=== PATIENT | female | born 1985 ===

== ENCOUNTER 2017-05-10 17:45 | Inpatient (IN) | payer BC ==
[2017-05-10] MEDS ORDERED: Sodium Chloride 0.9% 1,000 ML IV STA (18:25)
[2017-05-10] MEDS ORDERED: Iohexol 240 (50 ml) PO ONE (18:42)
--- NOTE | 2017-05-10 18:50 | ED PDOC ---
HPI: General Adult Time Seen by Provider: 05/10/17 18:17 Chief Complaint (Nursing): Abdominal Pain History Per: Patient Additional Complaint(s): Pt. states for the past 6 months she's had a progressively worsening mass on the LLQ which has become painful. States she was talking to Dr. Vazquez OBGYN, today who advised her to come to ED for further evaluation. 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 Denies fever, melena, hematochezia, BRBPR, diarrhea. Past Medical History Reviewed: Historical Data, Nursing Documentation, Vital Signs Vital Signs: Last Vital Signs Temp 97.9 F 05/11/17 07:32 Pulse 76 05/11/17 07:32 Resp 18 05/11/17 07:32 BP 118/79 05/11/17 07:32 Pulse Ox 99 05/11/17 07:32 - Surgical History Other surgeries: intestinal obstruction at 4 y/o - Family History Family History: States: No Known Family Hx - Home Medications Home Medications: Ambulatory Orders Medication Instructions Recorded No Known Home Med 05/10/17 - Allergies Allergies/Adverse Reactions: Allergies Allergy/AdvReac Type Severity Reaction Status Date / Time No Known Allergies Allergy Verified 05/10/17 17:48 Review of Systems ROS Statement: Except As Marked, All Systems Reviewed And Found Negative Gastrointestinal: Positive for: Abdominal Pain Physical Exam - Physical Exam Appears: Positive for: Well, Non-toxic, No Acute Distress Head Exam: Positive for: ATRAUMATIC Skin: Positive for: Normal Color, Warm. Negative for: Rash Eye Exam: Positive for: Normal appearance ENT: Positive for: Normal ENT Inspection Neck: Positive for: Normal, Painless ROM Cardiovascular/Chest: Positive for: Tachycardia. Negative for: Murmur Respiratory: Positive for: Normal Breath Sounds. Negative for: Respiratory Distress Gastrointestinal/Abdominal: Positive for: Normal Exam, Bowel Sounds, Soft, Tenderness (Minimal LLQ tenderness ), Mass (LLQ non-reducible mass). Negative for: Distended, Guarding Back: Positive for: Normal Inspection. Negative for: L CVA Tenderness, R CVA Tenderness Extremity: Positive for: Normal ROM Neurologic/Psych: Positive for: Alert, Oriented. Negative for: Aphasia, Facial Droop - Laboratory Results Result Diagrams: 05/10/17 19:11 05/11/17 12:52 - ECG O2 Sat by Pulse Oximetry: 100 - Progress ED Course And Treament: Case d/w Dr. Vazquez and requests CT abd/pelvis w/o contrast and CT abd/pelvis w / PO and IV contrast and for patient to be admitted under Dr. Atkinson and to contact vice president of engineering. [address] abd/pelvis w/o contrast and CT abd/pelvis w/ PO and IV contrast ordered. Call placed to vice president of engineering. 1854 Case d/w Dr. Atkinson who agrees with plan as stated above. CT orders read and reread to Dr. Atkinson and confirmed that this is what he wants. Also states pt. can be admitted under his service. Case d/w Dr. Barragan, vice president of engineering, who will see patient in ED. [address] Barragan in ED. Pending CT. Disposition - Clinical Impression Clinical Impression: Abdominal pain - Patient ED Disposition Is Patient to be Admitted: Yes - Disposition Disposition Time: 19:04 Condition: STABLE
[2017-05-10 19:31] LABS: BASO % 0.7 % (0.0-2.0); EOS # 0.1 K/uL (0.0-0.7); EOS % 1.4 % (0.0-4.0); HEMOGLOBIN 11.8 g/dL (12.0-16.0); LYMPH # 2.5 K/uL (1.0-4.3); LYMPH % 42.1 % (20.0-40.0); MEAN CELL VOLUME 79.6 fl (81.0-99.0); MEAN CORPUSCULAR HEMOGLOBIN 25.6 pg (27.0-31.0); MEAN CORPUSCULAR HGB CONC 32.2 g/dL (33.0-37.0); MEAN PLATELET VOLUME 7.1 fl (7.2-11.7); MONO # 0.3 K/uL (0.0-0.8); MONO % 5.3 % (0.0-10.0); NEUT # 2.9 K/uL (1.8-7.0); NEUT % 50.5 % (50.0-75.0); NRBC % 0.1 % (0.0-0.0); RBC 4.59 Mil/uL (3.80-5.20); RED CELL DISTRIBUTION WIDTH 16.1 % (11.5-14.5); WHITE BLOOD COUNT 5.8 K/uL (4.8-10.8)
[2017-05-10 19:35] LABS: VENOUS BLOOD GAS PCO2 45 mmHg (40-60); VENOUS BLOOD GAS PO2 25 mm/Hg (30-55); VENOUS BLOOD PH 7.38 (7.32-7.43)
[2017-05-10 19:39] LABS: SQUAMOUS EPITHIAL 2 /hpf (0-5); URINE BACTERIA FEW (<OCC); URINE BILIRUBIN NEGATIVE (NEGATIVE); URINE BLOOD SMALL (NEGATIVE); URINE CLARITY CLEAR (Clear); URINE COLOR STRAW (YELLOW); URINE GLUCOSE (UA) NEG (Normal); URINE LEUKOCYTE ESTERASE NEG Leu/uL (Negative); URINE PROTEIN NEGATIVE (NEGATIVE); URINE UROBILINOGEN 0.2-1.0 mg/dL (0.2-1.0)
[2017-05-10 19:41] LABS: ALB/GLOB RATIO 1.4 (1.0-2.1); ALBUMIN 4.8 g/dL (3.5-5.0); ALT/SGPT 27 U/L (9-52); AST/SGOT 24 U/L (14-36); BLOOD UREA NITROGEN 10 mg/dl (7-17); CALCIUM 9.8 mg/dL (8.4-10.2); GFR AFRICAN-AMERICAN > 60; GFR NON-AFRICAN AMERICAN > 60
[2017-05-10] MEDS ORDERED: Iohexol 240 (50 ml) ONE (19:47)
--- NOTE | 2017-05-10 19:54 | CP.PCM.HP ---
History of Present Illness - History of Present Illness History of Present Illness: SURGERY H&P FOR BRANDYNBIN 31F presents with abdominal pain that has been on going for 6 months. Patient states pain is getting much worse and came to ED for evaluation. Patient denies nausea and vomiting, fevers and chills. She states she has been having bowel movements and had two today which were diarrhea. She states she feels a mass in the left lower quadrant that has been getting bigger. PMH: none PSH: bowel resection at 4years old for "obstruction and strangulated bowel" Social: denies tobacco, alcohol and illicit drugs Allergies: NKDA Present on Admission - Present on Admission Any Indicators Present on Admission: No Past Patient History - Past Social History Smoking Status: Never Smoked - PSYCHIATRIC Hx Substance Use: No Meds Allergies/Adverse Reactions: Allergies Allergy/AdvReac Type Severity Reaction Status Date / Time No Known Allergies Allergy Verified 05/10/17 17:48 Physical Exam - Constitutional Appears: Well, Non-toxic, No Acute Distress - Head Exam Head Exam: ATRAUMATIC - Eye Exam Eye Exam: EOMI, PERRL - ENT Exam ENT Exam: Mucous Membranes Moist - Respiratory Exam Respiratory Exam: Clear to Auscultation Bilateral, NORMAL BREATHING PATTERN - Cardiovascular Exam Cardiovascular Exam: REGULAR RHYTHM, +S1, +S2 - GI/Abdominal Exam GI & Abdominal Exam: Mass (LLQ mobile mass), Soft, Tenderness (moderately tender in LLQ). absent: Distended, Firm, Guarding, Rebound, Rigid - Neurological Exam Neurological exam: Alert, Oriented x3 - Psychiatric Exam Psychiatric exam: Normal Affect, Normal Mood - Skin Skin Exam: Dry, Intact, Normal Color, Warm Results - Vital Signs Recent Vital Signs: Last Vital Signs Temp 98.5 F 05/10/17 17:49 Pulse 110 H 05/10/17 17:49 Resp 16 05/10/17 17:49 BP 137/87 05/10/17 17:49 Pulse Ox 100 05/10/17 19:35 - Labs Result Diagrams: 05/10/17 19:11 05/10/17 19:11 Labs: Laboratory Results - last 24 hr 05/10/17 05/10/17 05/10/17 19:11 19:11 19:11 WBC 5.8 RBC 4.59 Hgb 11.8 L Hct 36.5 MCV 79.6 L MCH 25.6 L MCHC 32.2 L RDW 16.1 H Plt Count 401 H MPV 7.1 L Neut % (Auto) 50.5 Lymph % (Auto) 42.1 H [place] % (Auto) 5.3 Eos % (Auto) 1.4 Baso % (Auto) 0.7 Neut # (Auto) 2.9 Lymph # (Auto) 2.5 [place] # (Auto) 0.3 Eos # (Auto) 0.1 Baso # (Auto) 0.0 pO2 VBG pH VBG pCO2 VBG HCO3 VBG Total CO2 VBG O2 Sat (Calc) VBG Base Excess VBG Potassium Glucose Lactate FiO2 Sodium 142 Potassium 3.4 L Chloride 99 Carbon Dioxide 26 Anion Gap 20 BUN 10 Creatinine 0.7 Est GFR ( Amer) > 60 Est GFR (Non-Af Amer) > 60 Random Glucose 93 Calcium 9.8 Total Bilirubin 0.8 AST 24 ALT 27 Alkaline Phosphatase 87 Total Protein 8.3 H Albumin 4.8 Globulin 3.5 Albumin/Globulin Ratio 1.4 Venous Blood Potassium Urine Color Urine Clarity Urine pH Ur Specific [place] Urine Protein Urine Glucose (UA) Urine Ketones Urine Blood Urine Nitrate Urine Bilirubin Urine Urobilinogen Ur Leukocyte Esterase Urine RBC (Auto) Urine Microscopic WBC Ur Squamous Epith Cells Urine Bacteria BBK History Checked No verified bt 05/10/17 05/10/17 19:11 19:30 WBC RBC Hgb Hct MCV MCH MCHC RDW Plt Count MPV Neut % (Auto) Lymph % (Auto) [place] % (Auto) Eos % (Auto) Baso % (Auto) Neut # (Auto) Lymph # (Auto) [place] # (Auto) Eos # (Auto) Baso # (Auto) pO2 25 L VBG pH 7.38 VBG pCO2 45 VBG HCO3 24.2 VBG Total CO2 28.0 VBG O2 Sat (Calc) 49.2 VBG Base Excess 1.0 VBG Potassium 3.3 L Glucose 89 Lactate 1.0 FiO2 21.0 Sodium 138.0 Potassium Chloride 106.0 Carbon Dioxide Anion Gap BUN Creatinine Est GFR ( Amer) Est GFR (Non-Af Amer) Random Glucose Calcium Total Bilirubin AST ALT Alkaline Phosphatase Total Protein Albumin Globulin Albumin/Globulin Ratio Venous Blood Potassium 3.3 L Urine Color Straw Urine Clarity Clear Urine pH 6.0 Ur Specific [place] 1.006 Urine Protein Negative Urine Glucose (UA) Neg Urine Ketones Trace Urine Blood Small Urine Nitrate Negative Urine Bilirubin Negative Urine Urobilinogen 0.2-1.0 Ur Leukocyte Esterase Neg Urine RBC (Auto) 1 Urine Microscopic WBC 1 Ur Squamous Epith Cells 2 Urine Bacteria Few H BBK History Checked Assessment & Plan - Assessment and Plan (Free Text) Assessment: 31F with abdominal pain and mass in LLQ Plan: - Admit patient - Pt needs abdominal CT scan IV/PO contrast - Bowel prep overnight in prep for OR tomm - NPOmn and pre-op labs Further recs discuss with Dr. China Barragan, PGY2
[2017-05-10 19:56] LABS: PROTHROMBIN TIME 11.3 Seconds (9.8-13.1)
[2017-05-10 19:57] LABS: PARTIAL THROMBOPLASTIN TIME 30.4 Seconds (25.6-37.1)
[2017-05-10] MEDS ORDERED: Magnesium Citrate Oral SOL (300 ml) PO ONE (19:58)
--- NOTE | 2017-05-10 20:45 | CT ---
EXAM: CT Abdomen and Pelvis Without Intravenous Contrast EXAM DATE/TIME: 05/10/2017 6:42 PM CLINICAL HISTORY: 31 years old, female; Pain; Abdominal pain; Localized; Left lower quadrant (llq); Prior surgery; Surgery date: 6+ months; Surgery type: Intest. Obst. At 4 yrs of age; Patient HX: Pt. States: Endometriosis; Additional info: As requested by dr. Vazquez TECHNIQUE: Axial computed tomography images of the abdomen and pelvis without intravenous contrast. All CT scans at this facility use one or more dose reduction techniques, viz.: automated exposure control; ma/kV adjustment per patient size (including targeted exams where dose is matched to indication; i.e. head); or iterative reconstruction technique. Coronal and sagittal reformatted images were created and reviewed. COMPARISON: There are no prior studies for comparison. FINDINGS: Limitations: Lack of intravenous and oral contrast and paucity of body fat limits evaluation of the abdomen and pelvis. Lower thorax: Heart size is normal. Lung bases are clear. ABDOMEN: Liver: unremarkable Gallbladder and bile ducts: Gallbladder is distended. There is incidental pneumobilia. Common duct is not well demonstrated. Pancreas: unremarkable Spleen: unremarkable Adrenals: unremarkable Kidneys and ureters: unremarkable Stomach and bowel: Stomach is incompletely distended. Positioning of small bowel suggest rotational anomaly. Small bowel is located in the right abdomen and right lower quadrant. Small bowel is mildly distended with air. There is mild wall and fold prominence. Cecum is difficult to identify and may be in the epigastric region and left upper quadrant. Terminal ileum and appendix are not well demonstrated.Colon is incompletely distended which limits evaluation. Appendix: See above PELVIS: Bladder: Bladder is incompletely distended. Reproductive: Uterus is unremarkable. There is a 5.8 x 8 x 7.7 cm left adnexal mass. There is an 8.9 x 8.5 x 7 cm right adnexal mass. Masses are not simple cysts. ABDOMEN and PELVIS: Intraperitoneal space: There is no free air or free fluid. Bones/joints: There are no acute osseous abnormalities. Soft tissues: unremarkable Vasculature: Aorta and inferior vena cava are unremarkable. Lymph nodes: There is shotty adenopathy. 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
[2017-05-10] MEDS ORDERED: Sodium Chloride 0.9% 100 ML ONE (21:38)
[2017-05-10] MEDS ORDERED: Iohexol 300 100 ML IJ ONE (21:38)
--- NOTE | 2017-05-10 22:34 | CT ---
EXAM: CT Abdomen and Pelvis With Intravenous Contrast EXAM DATE/TIME: 05/10/2017 6:42 PM CLINICAL HISTORY: 31 years old, female; Pain; Abdominal pain; Localized; Left lower quadrant (llq); Prior surgery; Surgery date: 6+ months; Surgery type: Intestinal obst. ; Patient HX: Obst at 4 yrs old; Additional info: As requested by dr. Vazquez TECHNIQUE: Axial computed tomography images of the abdomen and pelvis with intravenous contrast. All CT scans at this facility use one or more dose reduction techniques, viz.: automated exposure control; ma/kV adjustment per patient size (including targeted exams where dose is matched to indication; i.e. head); or iterative reconstruction technique. Coronal and sagittal reformatted images were created and reviewed. CONTRAST: 75 mL of [id number] administered intravenously. COMPARISON: CT - ABD PELVIS W/O PO OR IV CONT 2017-05-10 19:25 FINDINGS: Lower thorax: Heart size is normal. Lung bases are clear ABDOMEN: Liver: unremarkable Gallbladder and bile ducts: There is pneumobilia. Gallbladder is partially distended.There is mild prominence of the common duct. Pancreas: unremarkable Spleen: unremarkable Adrenals: unremarkable Kidneys and ureters: Kidneys are unremarkable. There is no dilatation on the right. There is mild left pelvocaliectasis and ureterectasis. Dilated left ureter can be traced to the upper pelvis. Stomach and bowel: Stomach is partially distended. There is small bowel rotational anomaly. Duodenal jejunal junction is in the right upper quadrant. Small bowel is primarily in the right abdomen. There is no obstruction. Cecum is in the right upper quadrant. Appendix is not visualized.There is no pericecal inflammation. There is contrast and air throughout the colon. Sigmoid is incompletely distended which limits evaluation of the bowel wall. Appendix: See stomach and bowel PELVIS: Bladder: Bladder is almost completely empty. Reproductive: Uterus is unremarkable. There is an 8.3 x 8.7 x 6.4 cm septated right adnexal mass. There is a 6.3 x 8.2 by 7.7 cm left adnexal mass. ABDOMEN and PELVIS: Intraperitoneal space: There is no free air or free fluid. Bones/joints: There are no acute osseous abnormalities. Soft tissues: unremarkable Vasculature: Aorta intervening cave are unremarkable Lymph nodes: unremarkable IMPRESSION: Bilateral adnexal masses ovarian versus endometriomas; mild left pelvocaliectasis and ureterectasis seen to the level of the upper pelvis and the left adnexal mass suggest partial obstruction; rotational anomaly of the small bowel, no bowel obstruction; distended gallbladder with pneumobilia Additional nonemergent findings as described above.
[2017-05-10] MEDS ORDERED: Magnesium Citrate Oral SOL (300 ml) ONE (22:57)
[2017-05-10] MEDS: Sodium Chloride 0.9% 1,000 ML IV SCH (23:02)
[2017-05-11] MEDS: Sodium Chloride 0.9% 1,000 ML IV SCH (03:46)
--- NOTE | 2017-05-11 07:39 | CARD ---
APPROVED REPORT EKG Measurement Heart [id number] <Conclusion> Sinus tachycardia Otherwise normal ECG
[2017-05-11] MEDS: Dextrose 5%/Lactated Ringer's 1,000 ML IV SCH ×3 (09:48→21:57)
[2017-05-11] MEDS: SODIUM CHLORIDE 0.9% IV SCH (10:14)
[2017-05-11] MEDS: POTASSIUM CL IV SCH (10:14)
[2017-05-11 13:09] LABS: ALB/GLOB RATIO 1.3 (1.0-2.1); ALT/SGPT 29 U/L (9-52); AST/SGOT 21 U/L (14-36); BLOOD UREA NITROGEN 9 mg/dl (7-17); GFR AFRICAN-AMERICAN > 60; GFR NON-AFRICAN AMERICAN > 60
[2017-05-11] MEDS ORDERED: Succinylcholine 200 mg/10 ml Inj IV ONE (14:54)
[2017-05-11] MEDS ORDERED: Rocuronium 10 mg/ml (5 ml) ONE ×2 (14:54→17:53)
[2017-05-11] MEDS ORDERED: Propofol 10 mg/ml Inj (20 ML) ONE (14:54)
[2017-05-11] MEDS ORDERED: Dexamethasone 4 mg/1 ml ONE (15:00)
[2017-05-11] MEDS ORDERED: Phenylephrine 10 mg/ml Inj ONE (15:01)
[2017-05-11 15:25] VITALS: O2SAT 100
[2017-05-11] MEDS ORDERED: Lidocaine 1% Inj (20ml) ONE (15:26)
[2017-05-11] MEDS ORDERED: Midazolam 2 MG/2 ML VIAL ONE (15:48)
[2017-05-11] MEDS ORDERED: Sodium Chloride 0.9% 500 ML IV ONE (15:57)
[2017-05-11] MEDS ORDERED: Lactated Ringer's 1,000 ML IV ONE (16:00)
[2017-05-11] MEDS ORDERED: Neostigmine 1:1000 (1 mg/ml) Inj ONE (16:10)
[2017-05-11] MEDS ORDERED: Lidocaine 1% Inj (20ml) IJ ONE (16:25)
[2017-05-11] MEDS ORDERED: Sevoflurane - Inhalation Anesthetic Liq (250 ml) ONE (16:58)
[2017-05-11] MEDS ORDERED: Bupivacaine HCl/Epi 0.5% 1:20000 30 ML SOL IJ ONE (19:00)
[2017-05-11] MEDS ORDERED: Silver Nitrate Topical - Stick TOP ONE (19:10)
--- NOTE | 2017-05-11 19:42 | PCM.SURG1 ---
<Lai Lopez - Last Filed: 05/11/17 19:50> Surgeon's Initial Post Op Note - Surgeon's Notes Surgeon: Dr. Atkinson, Dr. Vazquez Quality Engineering Manager: Dr. 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 Operation Performed: Davinci ovarian cystectiomy & Lysis of ureteral adhesions, cystoscopy, b/l ureteral stenting, and injection of dye, removal of endometreosis of diaphram and bowel, lysis of adhesions, Excision of lea- rectal endometreosis Specimen/Specimens Removed: Right sided adenexal endometreoma, Left sided adenexal endometreoma Estimated Blood Loss: EBL {In ML}: 100 Blood Products Given: N/A Drains Used: No Drains Post-Op Condition: Good Date of Surgery/Procedure: 05/11/17 Time of Surgery/Procedure: 19:47 <León Vazquez - Last Filed: 05/12/17 11:27> Surgeon's Initial Post Op Note - Surgeon's Notes Pre-Operative Diagnosis: correction: left ureteral obsstruction
--- NOTE | 2017-05-11 20:13 | PCM.ANESB5 ---
Transverse Abdominis Block - Transverse Abdominis Plane Date of Procedure: 05/11/17 Anesthesiologist: PA Pre-Procedure Diagnosis: Bilateral adenexal masses Post-Procedure Diagnosis: Bilateral ovarian cysts, extensive endometriosos Procedure Performed: Transverse Abdominis Plane Nerve Block Left, Transverse Abdominis Plane Nerve Block Right - Procedure Transverse Abdominis Plane Nerve Block: The procedure was explained to the patient that it is for post-operative pain management and would be performed after surgery. Consent was obtained prior to surgery after a thorough discussion with the patient regarding the benefits and possible complications of transverse abdominis plane block. After the surgery had concluded and before the patient emerged from general anesthesia, time-out was held with the circulating nurse to re-confirm the appropriate block. With the patient in supine position, the ultrasound probe was placed transverse to the abdominal wall at the mid-axillary line above the iliac crest of the appropriate side. The skin, subcutaneous tissue, fat, external oblique muscle, internal oblique muscle, and the transverse abdominis muscle were identified. The general area of the block site was then prepped with Betadine three times. At this point, a # 21-gauge Stimuplex 4-inch needle was inserted posterior to and in plane with the ultrasound probe and directed anteriorly. Needle was advanced under direct ultrasound visualization until it reached the plane between the internal oblique and transverse abdominis muscles. After appropriate placement, 2mL of local anesthetic solution was injected. When the transverse abdominis plane was observed expanding in an ellipsoid way, the rest of the solution was slowly injected. A total of __22____ mL of ___0.2__ % __ bupivicaine with 1:200,000 epinephrine was used for this block. The needle was then removed and sterile dressing was applied. Similarly, the same procedure was performed on the other side using the same medications. The patient had stable vital signs throughout and had no untoward complications after emergence from general anesthesia in the recovery room.
[2017-05-11] MEDS ORDERED: HYDROmorphone 0.5 mg/0.5 ml ISec ONE ×2 (20:14→20:55)
[2017-05-11] MEDS: HYDROmorphone 0.5 mg/0.5 ml ISec IVP PRN ×2 (20:15→20:55)
[2017-05-11] MEDS: Lactated Ringer's 1,000 ML IV SCH ×2 (20:57→21:59)
[2017-05-11] MEDS ORDERED: Enoxaparin 40 mg Syringe SC SCH (22:00)
[2017-05-12] MEDS: Dextrose 5%/Lactated Ringer's 1,000 ML IV SCH (06:24)
[2017-05-12 07:16] LABS: BASO % 0.3 % (0.0-2.0); LYMPH # 2.2 K/uL (1.0-4.3); LYMPH % 20.9 % (20.0-40.0); MEAN CELL VOLUME 79.5 fl (81.0-99.0); MEAN CORPUSCULAR HEMOGLOBIN 25.6 pg (27.0-31.0); MEAN CORPUSCULAR HGB CONC 32.2 g/dL (33.0-37.0); MEAN PLATELET VOLUME 6.9 fl (7.2-11.7); MONO # 0.7 K/uL (0.0-0.8); MONO % 7.2 % (0.0-10.0); NEUT # 7.4 K/uL (1.8-7.0); NEUT % 71.6 % (50.0-75.0); NRBC % 0.2 % (0.0-0.0); RBC 3.9 Mil/uL (3.80-5.20); RED CELL DISTRIBUTION WIDTH 15.8 % (11.5-14.5); WHITE BLOOD COUNT 10.3 K/uL (4.8-10.8)
[2017-05-12 07:49] LABS: ALB/GLOB RATIO 1.2 (1.0-2.1); ALBUMIN 3.2 g/dL (3.5-5.0); ALT/SGPT 40 U/L (9-52); AST/SGOT 78 U/L (14-36); BLOOD UREA NITROGEN 7 mg/dl (7-17); CALCIUM 8.5 mg/dL (8.4-10.2); GFR AFRICAN-AMERICAN > 60; GFR NON-AFRICAN AMERICAN > 60
[2017-05-12 07:55] VITALS: BP 116/80; PULSE 89; RESP 16; TEMP 98.5
[2017-05-12] MEDS ORDERED: Enoxaparin 40 mg Syringe SC SCH (09:00)
--- NOTE | 2017-05-12 09:52 | CP.PCM.PN ---
Subjective - Date & Time of Evaluation Date of Evaluation: 05/12/17 Time of Evaluation: 08:00 - Subjective Subjective: Patient seen and examined OOB to chair comfortable. Pain is well controlled, describes as pressure-like. Has not had breakfast as of yet. Chambers removed this AM, awaiting voluntary void. No acute events overnight. Objective - Vital Signs/Intake and Output Vital Signs (last 24 hours): Temp Pulse Resp BP Pulse Ox 98.5 F 89 16 116/80 100 05/12/17 07:54 05/12/17 07:54 05/12/17 07:54 05/12/17 07:54 05/12/17 07:54 Intake and Output: 05/12/17 05/12/17 06:59 18:59 Intake Total 100 Output Total 600 Balance -500 - Medications Medications: Current Medications Acetaminophen (Tylenol 325mg Tab) 650 mg PO Q6 PRN PRN Reason: Pain, severe (8-10) Enoxaparin Sodium (Lovenox) 40 mg SC Q24H ZAC PRN Reason: Protocol Last Admin: 05/11/17 23:12 Dose: 40 mg Lactated Ringer's (Lactated Ringer's) 1,000 mls @ 100 mls/hr IV .Q10H ZAC Last Admin: 05/11/17 21:59 Dose: 100 mls/hr Ketorolac Tromethamine (Toradol) 15 mg IVP Q6 ZAC Last Admin: 05/12/17 03:56 Dose: 15 mg Ondansetron HCl (Zofran Inj) 4 mg IVP Q6 PRN PRN Reason: Nausea/Vomiting - Labs Labs: 05/12/17 07:00 05/12/17 07:00 PT 11.3 Seconds (9.8-13.1) 05/10/17 19:11 INR 1.0 (0.9-1.2) 05/10/17 19:11 APTT 30.4 Seconds (25.6-37.1) 05/10/17 19:11 - GI/Abdominal Exam GI & Abdominal Exam: Normal Bowel Sounds. absent: Guarding, Rebound Additional comments: Portal dressings clean dry and intact. Soft, mildly tender 2nd to surgery. No distension. Assessment and Plan (1) Endometriosis Assessment & Plan: Patient is POD#1 from Davinci removal of endometriosis tissue, lysis of adhesions, and cystoscopy b/l uretral stenting doing well. -Void check -pain control -patient may shower -clear to discharge home once voided -case and plan d/w Dr. Vazquez in agreement Status: Acute
--- NOTE | 2017-05-12 11:18 | CP.PCM.PN ---
Subjective - Date & Time of Evaluation Date of Evaluation: 05/12/17 Time of Evaluation: 11:16 - Subjective Subjective: pod # 1 emergency surgery for p[elvic mass acute abdominal pain and hydroneprosis doing well Objective - Vital Signs/Intake and Output Vital Signs (last 24 hours): Temp Pulse Resp BP Pulse Ox 98.5 F 89 16 116/80 100 05/12/17 07:54 05/12/17 07:54 05/12/17 07:54 05/12/17 07:54 05/12/17 07:54 Intake and Output: 05/12/17 05/12/17 06:59 18:59 Intake Total 100 Output Total 600 Balance -500 - Medications Medications: Current Medications Acetaminophen (Tylenol 325mg Tab) 650 mg PO Q6 PRN PRN Reason: Pain, severe (8-10) Enoxaparin Sodium (Lovenox) 40 mg SC Q24H ZAC PRN Reason: Protocol Last Admin: 05/11/17 23:12 Dose: 40 mg Lactated Ringer's (Lactated Ringer's) 1,000 mls @ 100 mls/hr IV .Q10H AZC Last Admin: 05/11/17 21:59 Dose: 100 mls/hr Ketorolac Tromethamine (Toradol) 15 mg IVP Q6 ZAC Last Admin: 05/12/17 10:19 Dose: 15 mg Ondansetron HCl (Zofran Inj) 4 mg IVP Q6 PRN PRN Reason: Nausea/Vomiting - Labs Labs: 05/12/17 07:00 05/12/17 07:00 PT 11.3 Seconds (9.8-13.1) 05/10/17 19:11 INR 1.0 (0.9-1.2) 05/10/17 19:11 APTT 30.4 Seconds (25.6-37.1) 05/10/17 19:11 Assessment and Plan (1) Hydronephrosis Status: Resolved (2) Abdominal mass Status: Resolved (3) Partial small bowel obstruction Status: Resolved - Assessment and Plan (Free Text) Assessment: doing well post operatively Plan: plan discharge home
--- NOTE | 2017-05-12 11:22 | CP.PCM.DIS ---
Provider - Provider Date of Admission: 05/10/17 19:16 Attending physician: Buzz Atkinson MD Time Spent in preparation of Discharge (in minutes): 40 Diagnosis - Discharge Diagnosis (1) Hydronephrosis Status: Acute Priority: High Onset Date: Unknown (2) Abdominal mass Status: Acute Priority: High Onset Date: Unknown (3) Partial small bowel obstruction Status: Acute Priority: High Onset Date: ~05/10/17 Hospital Course - Lab Results Lab Results: Most Recent Lab Values WBC 10.3 K/uL (4.8-10.8) D 05/12/17 07:00 RBC 3.90 Mil/uL (3.80-5.20) 05/12/17 07:00 Hgb 10.0 g/dL (12.0-16.0) L 05/12/17 07:00 Hct 31.0 % (34.0-47.0) L 05/12/17 07:00 MCV 79.5 fl (81.0-99.0) L 05/12/17 07:00 MCH 25.6 pg (27.0-31.0) L 05/12/17 07:00 MCHC 32.2 g/dL (33.0-37.0) L 05/12/17 07:00 RDW 15.8 % (11.5-14.5) H 05/12/17 07:00 Plt Count 325 K/uL (130-400) 05/12/17 07:00 MPV 6.9 fl (7.2-11.7) L 05/12/17 07:00 Neut % (Auto) 71.6 % (50.0-75.0) 05/12/17 07:00 Lymph % (Auto) 20.9 % (20.0-40.0) 05/12/17 07:00 [place] % (Auto) 7.2 % (0.0-10.0) 05/12/17 07:00 Eos % (Auto) 0.0 % (0.0-4.0) 05/12/17 07:00 Baso % (Auto) 0.3 % (0.0-2.0) 05/12/17 07:00 Neut # (Auto) 7.4 K/uL (1.8-7.0) H 05/12/17 07:00 Lymph # (Auto) 2.2 K/uL (1.0-4.3) 05/12/17 07:00 [place] # (Auto) 0.7 K/uL (0.0-0.8) 05/12/17 07:00 Eos # (Auto) 0.0 K/uL (0.0-0.7) 05/12/17 07:00 Baso # (Auto) 0.0 K/uL (0.0-0.2) 05/12/17 07:00 PT 11.3 Seconds (9.8-13.1) 05/10/17 19:11 INR 1.0 (0.9-1.2) 05/10/17 19: APTT 30.4 Seconds (25.6-37.1) 05/10/17 19:11 pO2 25 mm/Hg (30-55) L 05/10/17 19:30 VBG pH 7.38 (7.32-7.43) 05/10/17 19:30 VBG pCO2 45 mmHg (40-60) 05/10/17 19:30 VBG HCO3 24.2 mmol/L 05/10/17 19:30 VBG Total CO2 28.0 mmol/L (22-28) 05/10/17 19:30 VBG O2 Sat (Calc) 49.2 % (40-65) 05/10/17 19:30 VBG Base Excess 1.0 mmol/L (0.0-2.0) 05/10/17 19:30 VBG Potassium 3.3 mmol/L (3.6-5.2) L 05/10/17 19:30 Sodium 138.0 mmol/L (132-148) 05/10/17 19:30 Chloride 106.0 mmol/L (98-107) 05/10/17 19:30 Glucose 89 mg/dL (65-105) 05/10/17 19:30 Lactate 1.0 mmol/L (0.7-2.1) 05/10/17 19:30 FiO2 21.0 % 05/10/17 19:30 Sodium 139 mmol/l (132-148) 05/12/17 07:00 Potassium 3.8 MMOL/L (3.6-5.0) 05/12/17 07:00 Chloride 101 mmol/L (98-107) 05/12/17 07:00 Carbon Dioxide 27 mmol/L (22-30) 05/12/17 07:00 Anion Gap 15 (10-20) 05/12/17 07:00 BUN 7 mg/dl (7-17) 05/12/17 07:00 Creatinine 0.6 mg/dl (0.7-1.2) L 05/12/17 07:00 Est GFR ( Amer) > 60 05/12/17 07:00 Est GFR (Non-Af Amer) > 60 05/12/17 07:00 Random Glucose 100 mg/dL (65-105) 05/12/17 07:00 Calcium 8.5 mg/dL (8.4-10.2) 05/12/17 07:00 Phosphorus 3.7 mg/dl (2.5-4.5) 05/12/17 07:00 Magnesium 1.7 MG/DL (1.6-2.3) 05/12/17 07:00 Total Bilirubin 0.8 mg/dl (0.2-1.3) 05/12/17 07:00 AST 78 U/L (14-36) H D 05/12/17 07:00 ALT 40 U/L (9-52) 05/12/17 07:00 Alkaline Phosphatase 58 U/L (38-126) 05/12/17 07:00 Total Protein 5.9 G/DL (6.3-8.2) L 05/12/17 07:00 Albumin 3.2 g/dL (3.5-5.0) L 05/12/17 07:00 Globulin 2.7 gm/dL (2.2-3.9) 05/12/17 07:00 Albumin/Globulin Ratio 1.2 (1.0-2.1) 05/12/17 07:00 Venous Blood Potassium 3.3 mmol/L (3.6-5.2) L 05/10/17 19:30 Urine Color Straw (YELLOW) 05/10/17 19:11 Urine Clarity Clear (Clear) 05/10/17 19:11 Urine pH 6.0 (5.0-8.0) 05/10/17 19:11 Ur Specific [place] 1.006 (1.003-1.030) 05/10/17 19:11 Urine Protein Negative mg/dL (NEGATIVE) 05/10/17 19:11 Urine Glucose (UA) Neg mg/dL (Normal) 05/10/17 19:11 Urine Ketones Trace mg/dL (NEGATIVE) 05/10/17 19:11 Urine Blood Small (NEGATIVE) 05/10/17 19:11 Urine Nitrate Negative (NEGATIVE) 05/10/17 19:11 Urine Bilirubin Negative (NEGATIVE) 05/10/17 19:11 Urine Urobilinogen 0.2-1.0 mg/dL (0.2-1.0) 05/10/17 19:11 Ur Leukocyte Esterase Neg Alexa/uL (Negative) 05/10/17 19:11 Urine RBC (Auto) 1 /hpf (0-3) 05/10/17 19:11 Urine Microscopic WBC 1 /hpf (0-5) 05/10/17 19:11 Ur Squamous Epith Cells 2 /hpf (0-5) 05/10/17 19:11 Urine Bacteria Few (<OCC) H 05/10/17 19:11 Blood Type B POSITIVE 05/10/17 19:11 Blood Type Confirm B POSITIVE 05/10/17 19:45 Antibody Screen Negative 05/10/17 19:11 Crossmatch See Detail 05/10/17 19:11 BBK History Checked No verified bt 05/10/17 19:11 - Hospital Course Hospital Course: patient was admitted with seveere abdominal pain via the emergency room she was found to have a veri large abdominopelvic mass and a left hydronephrosis from dcompression she also had intermittend bowel obstruction , a condition for which she had multiple prior hospital dmissions she was taken t the or and found to have massive abdominal endometriosis bilateral ovarian masses extensive small bowel adhesions and left hydroneprosis and hydrohureter - Date & Time of H&P Date of H&P: 05/12/17 Time of H&P: 11:25 Discharge Exam - Head Exam Head Exam: ATRAUMATIC Discharge Plan - Follow Up Plan Condition: STABLE Disposition: HOME/ ROUTINE
--- NOTE | 2017-05-15 07:33 | OP ---
PROCEDURE DATE: 05/11/2017 PREOPERATIVE DIAGNOSES: Acute abdominal pain, abdominal mass, left ureteral blockage with left hydronephrosis and hydroureter, and partial bowel obstruction. POSTOPERATIVE DIAGNOSES: Acute abdominal pain, abdominal mass, left ureteral blockage with left hydronephrosis and hydroureter, and partial bowel obstruction, plus extensive abdominopelvic adhesions, massive ovarian masses consistent with endometriomas, adhesions to the abdominal cavity, left ureteral stricture, and diffuse abdominopelvic endometriosis. PROCEDURE PERFORMED: Emergency exploratory laparoscopy with lysis of adhesions, cystoscopy with bilateral stent placement and injection of IC-Green dye, robotic laparoscopy, bilateral extensive ureterolyses, excision of bilateral endometriomas ( ovarian cystectomies ), right salpingectomy and excision of endometriosis. Dr. Atkinson from General Surgery will separately dictate the excision of diaphragmatic endometriosis and extensive lysis of adhesions. SURGEON: León Vazquez MD PHOTOENGRAVING ETCHER APPRENTICE: Dr. Buzz Atkinson from General Surgery. COMPLICATIONS: None. ESTIMATED BLOOD LOSS: 100 mL. SPECIMENS: Left and right endometriomas, multiple samples of endometriosis from the left pelvic sidewall, right pelvic sidewall, left ovarian fossa, posterior cervix, anterior rectum, and anterior abdominal wall, and right salpingectomy. INDICATION FOR THE PROCEDURE: The patient is a 31-year-old female who presented to the Emergency Room with severe abdominal pain and a palpable abdominal mass. Due to the patient's body habitus, the mass was actually visible and palpable and it was right below the umbilicus. The patient presented with gastrointestinal pain and abdominal pain. She was evaluated by clinically and with CT scan revealing presence of an ureteral stricture and left hydronephrosis as well as additional abnormalities. The patient had had prior admissions in the Emergency Room with intestinal obstruction and she was evaluated by General Surgery as well and it was agreed to take her to the OR for an exploratory surgery. The patient was informed with regards to the risks and benefits of the procedure and was taken to the OR and signed the consent. DESCRIPTION OF PROCEDURE: After adequate anesthesia was obtained, the patient was placed in dorsal lithotomy position and she was prepped and draped. The surgeon was gowned and gloved. Extreme attention was placed onto providing enough padding for the patient and not to extend or flex her hips beyond the physiological range. A time-out was taken and the procedure was started. The first part of the surgery involved a cystoscopy. The bladder revealed evidence of compression on the left hand side. The left ureteral ostia was barely visible under the compression of this mass. I was able to negotiate a 5-Yemeni stent with some difficulty through the ostia and advanced it partially into the left ureter and injected IC-Green. The right ureter was in normal anatomical position and it was cannulated without problem all the away to the distal ureter and 5 mL of IC-Green were injected. A speculum was placed in vagina. I attempted to put an uterine manipulator in the uterus, but I was unable to do due to the retroverted flexed position of the uterus. At this point, Dr. Atkinson from General Surgery was called in given the fact that the patient had a large paramedial incision due to a major surgery that she had when she was 5 years old. With his aide, we proceeded with an open laparoscopy with entrance in the supraumbilical area where we made an incision and carried down to the fascia and then entered the abdominal cavity bluntly. It was very apparent that there were massive adhesions present mostly involving the small bowel. At this point, an additional port was placed in the left lower quadrant and two additional ports in the suprapubic region and Dr. Atkinson proceeded with an extensive lysis of adhesions that he will dictate separately. After lysis of adhesions, we identified areas of endometriosis in the diaphragmatic area that Dr. Atkinson excised, he will dictate this part separately. At this point, additional ports were placed in the left upper quadrant and the right upper quadrant and da Adebayo Xi robot was docked. The procedure was started. There were two massive endometriomas extending from the pelvis, all the way into the abdominal cavity, each one greater in 10 cm in diameter. The left endometrioma was drained and elevated and endometriosis cyst was progressively removed in a step by step fashion and removed through a 12 size trocar laparoscopically. Once this was done, I also drained the right ovary and elevated and detached it. The cul-de-sac was completely obliterated. The left ureter was identified and a progressive dissection was performed along the border of the peritoneum. The anatomy was completely distorted and I followed up the ureter very slowly and peeled off the ureter and it from thick adhesions that were obstructing the ureter and distending it dilation. A progressive dissection was performed, the ureter from the uterine artery and dissecting it all the way from the pelvic rim, all the way down into the bladder. This was a very laborious dissection that lasted over 1 hour. Once this was done and the ureters were freed, I was able to put a uterine manipulator in the uterus and elevate the uterus and able to see the cul-de-sac. A large area of endometriosis was excised from the posterior cul-de-sac incorporating deep infiltrating endometriosis. Additional dissection was then included on the left hand side ovarian fossa where multiple areas of fibrotic endometriosis deep infiltrating were excised. At this point, attention was on the right hand side. Again the peritoneum was entered and another full dissection was performed completely lysed in the ureter from massive adhesions and endometriotic disease, all the way from the pelvic brim, all the way to the entrance of the ureter into the bladder, below the uterine canal, below the uterine artery. After this full dissection was performed, a large mass was again excised and sent to pathology. The right ovarian fossa at this point was completely excised with a large area of endometriosis. At this point, the endometrioma from the right ovary was removed with some difficulty. The right fallopian tube appeared to be completely involved by endometriosis and had hydrosalpinx and we opted to proceed with salpingectomy, which was performed uneventfully. An area of endometriosis about the round ligament was also excised. After this extensive dissection, the pelvis had resumed its normal anatomical position. The left ureter was freed and was not dilated after the ureterolyses. There was no bleeding. The pelvis was irrigated and we examined the post-adhesion excision and the bowel appeared to be in excellent condition, so at this point the da Adebayo robot was undocked. The instruments were removed. The incision was closed in layers with 0 PDS for the skin and 4-0 Monocryl for the fascia. At the end of the procedure, all instruments and tape counts were correct. The patient tolerated the procedure well and was taken to the recovery room in excellent condition. León Vazquez MD [facility]
--- NOTE | 2017-05-22 09:23 | PCM.OP ---
Operative Report - Operative Report Date of Surgery/Procedure: 05/11/17 Time of Surgery/Procedure: 10:00 Surgeon: Dr. Buzz Atkinson Fitness Specialist: Dr. León Vazquez Anesthesia/Sedation: general/Dr. De Jesus Pre-Operative Diagnosis: Bowel obstruction from significant endometriosis involving the rectum and diaphragm Post-Operative Diagnosis: same Indication for Surgery: as above Operative Findings: as above Procedure/Operation Description: 1-Dessication of diaphragm endometriosis. 2- Excison multiple lea-rectal endometriosis. Brief History: Dr. George hernandez already initiated the robotic procedure when he noted significant endometriosis invovlement of the rectum and diaphragm. Intraoperative consultation was requested. Description of the Procedure: The patient had already been brought to the operating room and Dr. Vazquez had initiated the robotic procedure ( separate dictation Dr. Vazquez). After taking control of the robotic console the first lesions encountered were in the rectum, above the peritoneal refelction. The first lesion was circumferentially incised with electrocautery and with blunt and sharp dissection it was excied en-bloc and sent to pathology as a separate specimen. The second rectal lesion was removed in a sinilar faashion and sent to patholgy separately. The robot was then readjusted for the right upper diaphragm. Multiple miliary lesions were noted on the right diaphragm and these were dessicated with electrocautery. The defects in the diaphragm were felt to be adeqaute and the thorax was not violated. The operation was then turned over to Dr. Vazquez (separate dictation Dr. Vazquez). Estimated Blood Loss: 100 cc Blood Replaced: 1200 cc crystalloids Sponge/Instrument Count: correct Complications: none Discharge & Condition: stable
== END 2017-05-12 14:17 | disposition home or self-care (01) | DRG 333 ==
LOC: H.ER 17:45 → H.ERHOLD 19:16 → H.MEDSURG1 23:03
PROVIDERS: ADMIT Surgery; ATTEND Surgery
PROC: 0UT50ZZ Resection of Right Fallopian Tube, Open Approach (ICD-10-PCS; 2017-05-11)
PROC: 0UB20ZZ Excision of Bilateral Ovaries, Open Approach (ICD-10-PCS; 2017-05-11)
PROC: 0UB40ZZ Excision of Uterine Supporting Structure, Open Approach (ICD-10-PCS; 2017-05-11)
PROC: 8E0W0CZ Robotic Assisted Procedure of Trunk Region, Open Approach (ICD-10-PCS; 2017-05-11)
PROC: 0T788DZ Dilation of Bilateral Ureters with Intraluminal Device, Via Natural or Artificial Opening Endoscopic (ICD-10-PCS; 2017-05-11)
PROC: 3E0T3BZ Introduction of Anesthetic Agent into Peripheral Nerves and Plexi, Percutaneous Approach (ICD-10-PCS; 2017-05-11)
PROC: 3E0T3BZ Introduction of Anesthetic Agent into Peripheral Nerves and Plexi, Percutaneous Approach (ICD-10-PCS; 2017-05-11)
PROC: 0DBP0ZZ Excision of Rectum, Open Approach (ICD-10-PCS; 2017-05-11)
PROC: 0BBT0ZZ Excision of Diaphragm, Open Approach (ICD-10-PCS; 2017-05-11)
PROC: 0DN80ZZ Release Small Intestine, Open Approach (ICD-10-PCS; 2017-05-11)
PROC: 0DNW0ZZ Release Peritoneum, Open Approach (ICD-10-PCS; principal; 2017-05-11 15:00)
PROC: 0BBT0ZZ Excision of Diaphragm, Open Approach (ICD-10-PCS; 2017-05-11 15:00)
PROC: 0TN70ZZ Release Left Ureter, Open Approach (ICD-10-PCS; 2017-05-11 15:00)
PROC: 0TN60ZZ Release Right Ureter, Open Approach (ICD-10-PCS; 2017-05-11 15:00)
PROC: 0UBF0ZZ Excision of Cul-de-sac, Open Approach (ICD-10-PCS; 2017-05-11 15:00)
DX: K56.51 Intestinal adhesions [bands], with partial obstruction (principal); N13.1 Hydronephrosis with ureteral stricture, not elsewhere classified; N73.6 Female pelvic peritoneal adhesions (postinfective); N80.1 Endometriosis of ovary; N80.3 Endometriosis of pelvic peritoneum; N80.8 Other endometriosis; N83.202 Unspecified ovarian cyst, left side; N80.2 Endometriosis of fallopian tube; N70.11 Chronic salpingitis; R19.04 Left lower quadrant abdominal swelling, mass and lump; N80.5 Endometriosis of intestine